=== PATIENT | male | born 1955 | race Caucasian/White ===

== ENCOUNTER 2017-01-16 23:19 | Inpatient (IN) | payer BC ==
[~2017-01-16] VITALS: Ht 188 cm; Wt 125.3 kg
[2017-01-16] MEDS: SODIUM CHLOR 0.9% 1000 ML INJ 1,000 ML IV SCH (21:33)
[~2017-01-16 23:19] MED LIST: ACETAMINOPHEN 325 MG TAB PO PRN; BISACODYL 10 MG SUPP RECTAL PRN; LACTULOSE SYRUP 20 GM/30 ML CUP PO PRN; LISI-519 PO; MAGNESIUM HYDROXIDE SUSP 30 ML CUP PO PRN; METO50TA PO; NALOXONE HCL 0.4 MG/ML AMP IV PUSH PRN; ONDANSETRON HCL 4 MG/2 ML VIAL IVP PRN; PRAD150C PO; SENNOSIDES 8.6 MG TAB PO PRN; SODIUM CHLORIDE 0.9% FLUSH 10 ML FLUSH IV FLUSH PRN
[2017-01-16 23:31] VITALS: BP 117/77; PULSE 85; RESP 16; TEMP 97.6; O2SAT 99
[2017-01-17] VITALS (9 sets, daily range): BP systolic 105–106; BP diastolic 58–63; PULSE 80–108; RESP 13–16; TEMP 97.8–98.6; O2SAT 97–100
[2017-01-17] MEDS ORDERED: CHLORHEXIDINE GLUCONATE 2 % 1 PACK (2 CLOTHS)(extra cloths) TOPICAL PRN (00:45)
--- NOTE | 2017-01-17 03:31 | HHI.HP ---
[facility] Non-Staff Admission Diagnosis Diagnoses: (1) Chest pain Diagnosis: Principal (2) Atrial fibrillation with RVR Diagnosis: Principal (3) Hypertension, essential Diagnosis: Secondary Chief Complaint: Atrial fibrillation, chest pain, and feeling tired. Travel History International Travel<30 Days: No Contact w/Intl Traveler <30 Da: No Traveled to Known Affected Are: No History of Present Illness Mr. Navarro is 61 year old, with history of atrial fibrillation (first diagnosed first in 2004) and hypertension. Mr. Navarro reported having gone to visit his son earlier in the day (01/16/17) and began feeling tired which she said started between 11 AM to 12 noon. When he returned home since of fatigue was worsening and experienced palpitations which "happens when my A. fib gets worse." He also stated that he was experiencing a "cold sweat". Mr. Navarro said that he was resting for a little bit of time and took a nap and upon awakening he continued to feel tired and was experiencing chest pain. Shortly thereafter he he ate and his condition did not lianne. He then went to the emergency room at [facility] for evaluation and management of his condition. The ED team determined he was in atrial fibrillation with RVR and a troponin level of 0.06 resulted. He was subsequently sent to [facility] for management of his condition. At time of interview , he reported that his chest pain was much improved yet he was still experiencing a sense of "pressure". He denied pain extending to his back neck or into his left arm, as well as nausea or vomiting, or shortness of breath. Per patient's , who was at the bedside during the interview, she reported that her has been having episodes of fatigue for approximately 2 weeks. She stated that today's episode was "the worst that he has had." Patient agreed with his 's observation, and stated that he would feel tired at the end of the day and need to rest. Review of Systems Constitutional: COMPLAINS OF: Diaphoretic episodes, Fatigue Endocrine: DENIES: Polyuria, Polyphagia Eyes: DENIES: Blurred vision, Double Vision Ears, nose, mouth, throat: DENIES: Hearing loss, Vertigo, Throat pain, Hoarseness Respiratory: DENIES: Cough, Shortness of breath Cardiovascular: COMPLAINS OF: Chest pain, Palpitations, DENIES: Syncope, Dyspnea on Exertion, Orthopnea Gastrointestinal: DENIES: Abdominal pain, Constipation, Diarrhea, Nausea, Vomiting Genitourinary: DENIES: Hematuria, Dysuria Musculoskeletal: DENIES: Muscle aches Neurologic: COMPLAINS OF: Headache (attributed to nitroglycerin, improved with Tylenol.) Psychiatric: DENIES: Anxiety, Confusion Except as stated in HPI: all other systems reviewed are Neg Past Family Social History Past Medical History Atrial fibrillation diagnosed in 2004. Hypertension. Past Surgical History Left knee replacement. Left inguinal hernia repair as a child. Reported Medications Reported Meds & Active Scripts Active Reported Pradaxa (Dabigatran) 150 Mg Cap 150 Mg PO BID Metoprolol Tartrate 50 Mg Tab 50 Mg PO BID Lisinopril 5 Mg Tab 5 Mg PO DAILY Allergies: Coded Allergies: No Known Allergies (Unverified , 01/16/17) Active Ordered Medications Current Medications Medications (Trade) Dose Ordered Sig/Katherine Route Start Time Stop Time Status Last Admin Sodium Chloride 1,000 ml @ 50 mls/hr Q20H IV 01/16/17 21:33 01/16/17 21:33 (NS Flush) 2 ml UNSCH PRN IV FLUSH 01/16/17 21:45 (NS Flush) 2 ml BID IV FLUSH 01/17/17 09:00 (Tylenol) 650 mg Q4H PRN PO 01/16/17 21:45 (Zofran Inj) 4 mg Q4H PRN IVP 01/16/17 21:45 (Narcan Inj) 0.4 mg UNSCH PRN IV PUSH 01/16/17 21:45 (Claire-Colace) 1 tab BID PO 01/17/17 09:00 (Milk Of Magnesia Liq) 30 ml Q12H PRN PO 01/16/17 21:45 (Senokot) 17.2 mg Q12H PRN PO 01/16/17 21:45 (Dulcolax Supp) 10 mg DAILY PRN RECTAL 01/16/17 21:45 (Lactulose Liq) 30 ml DAILY PRN PO 01/16/17 21:45 (Pradaxa) 150 mg BID PO 01/17/17 09:00 (Prinivil) 5 mg DAILY PO 01/17/17 09:00 (Lopressor) 50 mg BID PO 01/17/17 09:00 Miscellaneous Information Patient in critical care unit? Ass... Q361D .XX 01/17/17 01:00 (Chlorhexidine 2% Cloth) 3 pack DAILY@04 TOPICAL 01/17/17 04:00 01/21/17 04:01 (Chlorhexidine 2% Cloth) 3 pack UNSCH PRN TOPICAL 01/17/17 00:45 01/22/17 00:32 Family History Mother positive for diabetes, breast cancer. Paternal uncle reported to have prostate cancer. Family history of cardiovascular disease and hypertension Social History Patient denied tobacco use. Illicit/recreational drug use was denied. Alcohol use was denied. Patient is . Physical Exam Vital Signs Vital Signs Date Time Temp Pulse Resp B/P (MAP) Pulse Ox O2 Delivery O2 Flow Rate FiO2 01/17/17 02:00 88 01/17/17 00:00 99 01/16/17 23:31 97.6 85 16 117/77 (90) 99 Physical Exam GENERAL: This is a well-nourished, well-developed male, laying in bed with family at bedside, in no apparent distress. SKIN: No rashes, ecchymoses or lesions. Cool and dry. Tattoos noted on right bicep. HEAD: Atraumatic. Normocephalic. EYES: Pupils equal round and reactive. Extraocular motions intact. No scleral icterus. No injection or drainage. ENT: Nose without bleeding or purulent drainage. Airway patent. NECK: Trachea midline. No lymphadenopathy. Supple, nontender, no meningeal signs. CARDIOVASCULAR: Irregular rate and irregular rhythm without murmurs, gallops, or rubs. RESPIRATORY: Clear to auscultation. Breath sounds equal bilaterally. No wheezes , rales, or rhonchi. GASTROINTESTINAL: Abdomen soft, non-tender, nondistended. No hepato- splenomegaly or guarding. MUSCULOSKELETAL: Extremities without clubbing, cyanosis, or edema. NEUROLOGICAL: Awake and alert. Cranial nerves II through XII intact. Motor and sensory grossly within normal limits. Five out of 5 muscle strength in all muscle groups. Speech was clear and fluent. Laboratory Laboratory Tests Test 01/16/17 23:30 01/17/17 00:49 Nasal Screen MRSA (PCR) MRSA NOT DETECTED Troponin I 0.06 Caprini VTE Risk Assessment Caprini VTE Risk Assessment: Mod/High Risk (score >= 2) Caprini Risk Assessment Model Point Value = 1 Point Value = 2 Point Value = 3 Point Value = 5 Age 41-60 Minor surgery BMI > 25 kg/m2 Swollen legs Varicose veins or History of unexplained or recurrent spontaneous Oral contraceptives or hormone replacement Sepsis (< 1 month) Serious lung disease, including pneumonia (< 1 month) Abnormal pulmonary function Acute myocardial infarction Congestive heart failure (< 1 month) History of inflammatory bowel disease Medical patient at bed rest Age 61-74 Arthroscopic surgery Major open surgery (> 45 min) Laparoscopic surgery (> 45 min) Malignancy Confined to bed (> 72 hours) Immobilizing plaster cast Central venous access Age >= 75 History of VTE Family history of VTE Factor V Leiden Prothrombin [id number] Lupus anticoagulant Anticardiolipin antibodies Elevated serum homocysteine Heparin-induced thrombocytopenia Other congenital or acquired thrombophilia Stroke (< 1 month) Elective arthroplasty Hip, pelvis, or leg fracture Acute spinal cord injury (< 1 month) Prophylaxis Regimen Total Risk Factor Score Risk Level Prophylaxis Regimen 0-1 Low Early ambulation 2 Moderate Order ONE of the following: *Sequential Compression Device (SCD) *Heparin 5000 units SQ BID 3-4 Higher Order ONE of the following medications: *Heparin 5000 units SQ TID *Enoxaparin/Lovenox 40 mg SQ daily (WT < 150 kg, CrCl > 30 mL/min) *Enoxaparin/Lovenox 30 mg SQ daily (WT < 150 kg, CrCl > 10-29 mL/min) *Enoxaparin/Lovenox 30 mg SQ BID (WT < 150 kg, CrCl > 30 mL/min) AND/OR *Sequential Compression Device (SCD) 5 or more Highest Order ONE of the following medications: *Heparin 5000 units SQ TID (Preferred with Epidurals) *Enoxaparin/Lovenox 40 mg SQ daily (WT < 150 kg, CrCl > 30 mL/min) *Enoxaparin/Lovenox 30 mg SQ daily (WT < 150 kg, CrCl > 10-29 mL/min) *Enoxaparin/Lovenox 30 mg SQ BID (WT < 150 kg, CrCl > 30 mL/min) AND *Sequential Compression Device (SCD) Assessment and Plan Problem List: (1) Hypertension, essential ICD Code: I10 - Essential (primary) hypertension (2) Chest pain ICD Code: R07.9 - Chest pain, unspecified (3) Atrial fibrillation with RVR ICD Code: I48.91 - Unspecified atrial fibrillation Status: Acute Assessment and Plan Mr. Navarro is 61 year old, with history of atrial fibrillation (first diagnosed first in 2004) and hypertension. Mr. aNvarro reported having gone to visit his son earlier in the day (01/16/17) and began feeling tired which she said started between 11 AM to 12 noon. When he returned home since of fatigue was worsening and experienced palpitations which "happens when my A. fib gets worse." He also stated that he was experiencing a "cold sweat". Mr. Navarro said that he was resting for a little bit of time and took a nap and upon awakening he continued to feel tired and was experiencing chest pain. Shortly thereafter he he ate and his condition did not lianne. He then went to the emergency room at [facility] for evaluation and management of his condition. The ED team determined he was in atrial fibrillation with RVR and a troponin level of 0.06 resulted. Atrial fibrillation with RVR Hypertension -Admit to [facility] -Consult cardiology -Serial troponins -Continue home metoprolol 50 mg twice a day -Continue lisinopril 5 mg daily -Continue Pradaxa 150 mg twice a day Diet -Healthy heart DVT prophylaxis -Pradaxa 150 mg twice a day Code Status Full code Discussed Condition With Patient, and adult son (at bedside), and Dr. Onofre Physician Certification 2 Midnight Certification Type: Admission for Inpatient Services Order for Inpatient Services The services are ordered in accordance with Medicare regulations or non- Medicare payer requirements, as applicable. In the case of services not specified as inpatient-only, they are appropriately provided as inpatient services in accordance with the 2-midnight benchmark. Estimated LOS (days): 2 Two days is the estimated time the patient will need to remain in the hospital, assuming treatment plan goals are met and no additional complications. Post-Hospital Plan: Home Problem Qualifiers (1) Chest pain: Qualified Codes: R07.9 - Chest pain, unspecified Alli Baptiste Jr. Jan 17, 2017 03:31
[2017-01-17] MEDS: CHLORHEXIDINE GLUCONATE 2 % 1 PACK (2 CLOTHS)(taper/protocol) TOPICAL SCH (04:00)
[2017-01-17] MEDS: DOCUSATE SODIUM 50 MG/SENNA 8.6 MG TAB PO SCH ×2 (07:47→20:11)
[2017-01-17] MEDS: METOPROLOL TARTRATE 50 MG TAB PO SCH ×2 (07:47→20:11)
[2017-01-17] MEDS: LISINOPRIL 5 MG TAB PO SCH (07:47)
[2017-01-17] MEDS ORDERED: NITROGLYCERIN-DEXTROSE 5% 250 ML for hypertension IV PRN (08:45)
[2017-01-17] MEDS ORDERED: DABIGATRAN ETEXILATE 150 MG CAP PO SCH (09:00)
[2017-01-17] MEDS ORDERED: ASPIRIN 81 MG CHEW TAB CHEW ONE (09:45)
[2017-01-17] MEDS: SODIUM CHLORIDE 0.9% FLUSH 10 ML FLUSH IV FLUSH SCH ×2 (12:37→20:12)
[2017-01-17 13:41] LABS: ALT (GPT) 31 U/L (12-78); ANION GAP 8 MEQ/L (5-15); AST (GOT) 18 U/L (15-37); BICARBONATE 23.2 MEQ/L (21.0-32.0); BLOOD UREA NITROGEN 17 MG/DL (7-18); CHLORIDE 111 MEQ/L (98-107); GLOMERULAR FILTRATION RATE 76 ML/MIN (>89); POTASSIUM 3.7 MEQ/L (3.5-5.1); SODIUM (NA) 142 MEQ/L (136-145)
[2017-01-17 13:43] LABS: ALKALINE PHOSPHATASE 56 U/L (45-117); TOTAL BILIRUBIN ADULT 0.4 MG/DL (0.2-1.0)
--- NOTE | 2017-01-17 14:23 | MB ---
cc: OLIVERIO HALEY M.D. DATE OF CONSULTATION: 01/17/2017 HISTORY OF PRESENT ILLNESS Poli is a very pleasant 61-year-old gentleman followed by Dr. Avila in [place]. According to the daughter he went to the ER yesterday. He has history of atrial fibrillation, he is on Pradaxa. He developed chest pain for the first time in his life yesterday, which was described as pressure and severe. The pain continued until this morning when he was put on a nitro drip and received narcotics. Currently he is pain free, resting comfortably, lucid, in no acute distress. Otherwise, denies any fevers, chills, cough, GI, bleeding, PND, orthopnea, syncope or dizziness. PAST MEDICAL HISTORY His past medical history is per history of present illness. He has a history of: 1. Hypertension. 2. History of knee replacement. 3. Inguinal hernia repair as a child. MEDICATIONS PRIOR TO ADMISSION 1. Pradaxa 150 b.i.d. 2. Metoprolol 50 b.i.d. 3. Lisinopril 5 mg daily. ALLERGIES None. SOCIAL HISTORY Denies tobacco use. Denies alcohol use. MEDICATIONS IN THE HOSPITAL 1. Aspirin 81 mg daily. 2. Lisinopril 5 mg daily. 3. Metoprolol 50 b.i.d. 4. IV nitroglycerin. PHYSICAL EXAMINATION VITAL SIGNS: Blood pressure 106/63, pulse ranging between 84 and 103, temperature 97.8, respiratory rate 13. GENERAL: He is alert and oriented x 3, in no acute distress. NECK: Supple. No JVD or bruits. CARDIOVASCULAR: S1, S2, no murmurs, rubs or gallops. LUNGS: Clear to auscultation bilaterally. ABDOMEN: Soft, nontender, nondistended with positive bowel sounds. EXTREMITIES: No lower extremity edema. EKG Shows atrial fibrillation at a rate of 128 beats per minute, nonspecific ST-T wave changes, consider anterolateral ischemia. IMAGING STUDIES Chest x-ray shows no acute disease. LABORATORY DATA White count 6.6, hemoglobin 13.5, hematocrit 39.6, platelet count 255, sodium 142, potassium 3.7, chloride 111, bicarb 23.2, BUN 17, creatinine 1.0. Troponin is 0.06, albumin 3.1. INR 1.0. He has had two more troponins today which were 0.06 and 0.06. DIAGNOSIS 1. Non-STEMI. 2. Atrial fibrillation with rapid ventricular response. DISCUSSION At this point in time the patient is pain free on IV nitro. Recommend hold Pradaxa, continue aspirin, continue metoprolol 50 b.i.d., use Cardizem drip p.r.n. for rate control. Plan is for left heart catheterization tomorrow. I have discussed this with the patient, the nurse and the patient's family. MD MANI Chicas/TLL /1:56 PM /2:05 PM
[2017-01-17] MEDS: SODIUM CHLOR 0.9% 1000 ML INJ 1,000 ML IV SCH (17:33)
[2017-01-18] VITALS (30 sets, daily range): BP systolic 83–139; BP diastolic 56–79; PULSE 89–128; RESP 10–24; TEMP 97.9–98.8; O2SAT 95–100
[2017-01-18 04:32] LABS: HEMATOCRIT 38.3 % (39.0-51.0); MEAN CELL VOLUME 90.9 FL (80.0-100.0); MEAN CORPUSCULAR HEMOGLOBIN 30.7 PG (27.0-34.0); MEAN CORPUSCULAR HGB CONC 33.8 % (32.0-36.0); PLATELET COUNT 201 TH/MM3 (150-450); RED BLOOD COUNT 4.22 MIL/MM3 (4.50-5.90); RED CELL DISTRIBUTION WIDTH 13.2 % (11.6-17.2); REVIEW FLAG FINAL; WHITE BLOOD COUNT 6.4 TH/MM3 (4.0-11.0)
[2017-01-18 04:57] LABS: MAGNESIUM 1.8 MG/DL (1.5-2.5); POTASSIUM 3.9 MEQ/L (3.5-5.1)
[2017-01-18] MEDS: CHLORHEXIDINE GLUCONATE 2 % 1 PACK (2 CLOTHS)(taper/protocol) TOPICAL SCH (07:00)
[2017-01-18] MEDS: LISINOPRIL 5 MG TAB PO SCH (08:36)
[2017-01-18] MEDS: METOPROLOL TARTRATE 50 MG TAB PO SCH ×2 (08:36→20:28)
[2017-01-18] MEDS: SODIUM CHLORIDE 0.9% FLUSH 10 ML FLUSH IV FLUSH SCH ×2 (08:37→20:29)
[2017-01-18] MEDS: DOCUSATE SODIUM 50 MG/SENNA 8.6 MG TAB PO SCH ×2 (08:37→20:28)
[2017-01-18] MEDS ORDERED: ASPIRIN 81 MG CHEW TAB CHEW SCH (09:00)
[2017-01-18] MEDS ORDERED: IOHEXOL 350 MG/ML 100 ML BTL (for Cath Lab) OTHER ONE (09:51)
[2017-01-18] MEDS ORDERED: NITROGLYCERIN-D5W 50 MG/250 ML 0 ML ONE (12:36)
[2017-01-18] MEDS ORDERED: HEPARIN SODIUM - IV 10,000 UNITS/10 ML VIAL ONE (12:48)
[2017-01-18] MEDS ORDERED: TIROFIBAN INFUSION INJ 250 ML IV ONE (12:52)
[2017-01-18] MEDS ORDERED: CLOPIDOGREL 300 MG TAB ONE (12:59)
[2017-01-18] MEDS: TIROFIBAN INFUSION INJ 250 ML IV SCH ×2 (13:14→21:26)
[2017-01-18] MEDS ORDERED: MISC INFORMATION XX ONE (13:15)
[2017-01-18] MEDS ORDERED: SODIUM CHLORIDE 0.9% FLUSH 10 ML FLUSH IV FLUSH PRN (13:15)
[2017-01-18] MEDS ORDERED: BACITRACIN OINT 0.9 GM PKT TOP ONE (13:15)
--- NOTE | 2017-01-18 13:22 | CATHPROC ---
[facility] HIS Report Study Information Study Number Admission Scheduled Start Study Start [id number] Jan 16 2017 11:20PM 01/18/2017 Jan 18 2017 12:23PM [place] [facility] Cardiac Catheterization Admit Source Facility Department Other [facility] - Commercial Teller Physician and Clinical Staff Initial Cuate Kraus Mortgage Protection Sales Herbert Hogue Mortgage Protection Sales Maru Olson,ALIA Recorder Kwame Ramirez RCIS(BS) Scrub HostDavion bailon,RT(R) Procedures Performed Procedure Location (Site) Vessel Name Coronary Angiograms LCA Left Coronary Coronary Angiograms RCA Right Coronary L Heart Cath LV Gram-hand inj. LV LV Ventricle Stent LAD Prox Left Coronary Wire insertion Fem Art (right) Femoral Art Equipment Time Brush Material Preparer Description Size Mfg Part Number Used/Scraped [id number] 12:50 [employer] WIRE, ASAHI PROWATER 180CM 180CM Used *[id number] TRANSDUCER, TRUWAVE [id number] 12:39 ZAVALA SABA * Used W/STOCKCOCK *[id number] [id number] *[id number] *[id number] *[id number] 12:39 MEDLINE INDUSTRIES PACK, CCL CUSTOM * Used *[id number] 12:39 Jumo PACER PEN, SKIN DUAL W/ RULER * Used *[id number] 12:55 MEDTRONIC STENT, 3.0 9 INTEGRITY 3.0 9 Used *[id number] 12:55 Soocial MEDICAL 30 BALDEV INDEFLATOR Used *[id number] 12:51 Soocial MEDICAL SHEATH, FR6.5 PRELUDE 11CM FR 6.5 038ACT Used *[id number] 12:39 [employer]o Entertainment WIRE, 3MMJ .035 180CM 180CM Used *[id number] 12:39 NAMIC MANIFOLD, 4 PORT * Used *[id number] 12:39 NYCOMED OMNIPAQUE, 350 MG, 150ML 150ML [id number] Used [id number] 12:39 MORE MEDICAL BLANKET,WARM AIR CCL * Used *[id number] 12:39 TERUMO MEDICAL SHEATH, FR4 TERUMO (10CM) FR 4 Used *[id number] Equipment Model, Serial, Lot Number and Expiration Data Description Model Number Serial Number Lot Number Expiration Date STENT, 3.0 9 INTEGRITY [id number] 11-09-2017 History: Allergies Allergy Reaction No Known Allergies broccoli HIVES cauliflower HIVES BRUSSEL SPROUTS HIVES History: Risk Factors Family History of Hypertension Dyslipidemia Previous OH Previous Heart Failure Premature CAD Yes No Yes No No Prior Valve Prior PCI Prior CABG Surgery No No No Cerebrovascular Peripheral Artery Chronic Lung On Dialysis Diabetes Disease Disease Disease No No No No No History: Stress Tests Stress or Imaging Studies Performed No History: Other Current Smoker Method Quit Packs a Day Years Used Pack Years No Cigarettes 36 Years Ago 1 4 4 Labs Hgb (g/dl) Hct (%) WBC (l/cumm) Platelets (thousands) 11.60-17.00 35.00-51.00 4.00-11.00 150.00-450.00 12.9 38.3 6.4 201 Glucose (mg/dl) BUN (mg/dl) Creatinine (mg/dl) BUN:Creatinine (1:x) 74.00-106.00 7.00-18.00 0.50-1.30 10.00-20.00 90 15 0.9 16.7 Na (meq/l) K (meq/l) 136.00-145.00 3.50-5.10 142 3.9 Troponin I (ng/ml) CPK (u/l) CPK-MB (ng/ML) 0.02-0.05 26.00-308.00 0.50-3.60 0.07 101 Not Drawn Medication Medication Total Dose (Bolus/Oral) Medication Total Dosage/Unit 1% XYLOCAINE 20 mL AGGRASTAT BOLUS 62 mL HEPARIN 8700 units PLAVIX 600 mg Medications (Bolus/Oral) Medication Time Given Dosage/Unit Administered By Reason 01/18/2017 12:42:03 1% XYLOCAINE 20 mL Cuate Montoya PM 20 mL 1% XYLOCAINE given in lab by Cuate Montoya in Right Groin via Subcutaneous. Ordered by Cuate Young. 01/18/2017 12:48:00 HEPARIN 8700 units Herbert Hogue PM 8700 units HEPARIN given in lab by Herbert Hogue in Left Hand via Peripheral IV. Ordered by Cuate Brambila. 01/18/2017 12:59:00 AGGRASTAT BOLUS 62 mL Herbert Hogue PM 62 mL AGGRASTAT BOLUS given in lab by Herbert Hogue in Left Hand via Peripheral IV. Ordered by Cuate Preciado. PLAVIX 01/18/2017 1:08:56 PM 600 mg Herbert Hogue 600 mg PLAVIX given in lab by Herbert Hogue via Oral. Ordered by Cuate Montoya. Medication (Drip) Medication Time Given Dosage/Unit Concentration/Unit Diluent (ml) Solution AGGRASTAT DRIP 01/18/2017 1:03:00 PM 22.5 mL/hr 12.5 mL 250 NaCl .9 22.5 mL/hr AGGRASTAT DRIP given in lab by Herbert Hogue in Right Hand via Peripheral IV. Pump/Drip Flow = 450 ml/hr using NaCl .9 with a concentration of 12.5 mL in 250 ml. Ordered by Cuate Montoya. Initial Case Assessment Cardiovascular HR Rhythm NIBP Chest Pain 92 AFIB 132/88 0 Edema Present Skin color Skin None Normal Warm Dry Circulatory - Right Pulses Dorsalis Pedis Femoral 1 2 Scale (0,1,2,3,4,d) Circulatory - Left Pulses Dorsalis Pedis Femoral 1 2 Scale (0,1,2,3,4,d) Circulatory - Lower Extremities Color Lower Right Color Lower Left Normal Normal Neurological State Oriented to time-place- Alert Moves all extremities person Respiration - General Respiration Rate SpO2 (%) (B/min) 14 97 Final Case Assessment Cardiovascular HR Rhythm NIBP Chest Pain 92 AFIB 131/65 0 Edema Present Skin color Skin None Normal Warm Dry Circulatory - Right Pulses Dorsalis Pedis Femoral 1 2 Scale (0,1,2,3,4,d) Circulatory - Left Pulses Dorsalis Pedis Femoral 1 2 Scale (0,1,2,3,4,d) Circulatory - Lower Extremities Color Lower Right Color Lower Left Normal Normal Neurological State Oriented to time-place- Alert Moves all extremities person Respiration - General Respiration Rate SpO2 (%) (B/min) 14 97 Chronological Log Time Study Chronological Log 12:23:31 Patient arrived via Bed. 12:23:32 Patient Name, D.O.B, / Armband Verified By R.N. 12:23:32 Consent signed by the physician and the patient and verified by the Commercial Teller staff. 12:23:33 Pre-op and post- op instructions given; patient acknowledges understanding of instructions. 12:23:34 Verbal Stimulation=2 Physical Stimulation=2 Airway=2 Respiration=2 TOTAL=8. (0=absent, 1=li mited, 2=present) 12:23:38 Patient has been NPO for More than 6Hrs. 12:23:39 Skin Breakdown- 12:23:44 Patient Warmer Placed on the Table. Vitals capture started with the following parameters, Patient=Adult, Interval=5 min, Initial Pr ejkvxz=406 mmHg, 12:27:36 Deflation Rate=5 mmHg, Cuff placed on Left Arm 12:28:48 HR=87 bpm, ZUSR=057/81 mmhg, SpO2=99.0 %, Resp=9 B/min, Pain=0, Arnel=10, Salazar=2 12:33:10 XP=996 bpm, SQXF=181/88 mmhg, SpO2=98.0 %, Resp=21 B/min, Pain=0, Arnel=10, Salazar=2 Assessment: Initial Case, HR=92 BPM, Rhythm=AFIB, KFRR=083/88 mmhg, Chest Pain=0, Edema=None, Color=Normal, Skin = Warm, Dry Right Pulses: Liban Ped=1, Femoral=2 Left Pulses: Liban Ped=1, Femoral=2 12:33:55 Lower Right Extremities: Color=Normal Lower Left Extremities: Color=Normal Neurological: State=Alert, Ox3, CARRILLO Respiration: Resp=14 B/min, SpO2=97 % 12:36:21 Bilateral groins prepped with 2% chlorhexidine, and draped after a 3 minute waiting time. 12:38:13 HR=89 bpm, DISZ=467/88 mmhg, SpO2=98.0 %, Resp=14 B/min, Pain=0, Arnel=10, Salazar=2 12:38:30 Reference ECG taken 12:40:24 MD arrived. 12:41:06 Pressure channel 1 zeroed. Time Out. Correct patient, correct procedure, correct physician, power injector not loaded with contrast with surgical 12:42:00 team present. Time Out Concurred by MD and individual staff in procedure. 12:42:01 Case Start 20 mL 1% XYLOCAINE given in lab by Cuate Montoya in Right Groin via Subcutaneous. Ordered by Lindsay, 12:42:03 Cuate. 12:43:17 HR=77 bpm, MGAT=575/85 mmhg, SpO2=99.0 %, Resp=11 B/min, Pain=0, Arnel=10, Salazar=2 12:43:36 Access site was Right Femoral Artery. 12:43:58 A SHEATH, FR4 TERUMO (10CM) FR 4 was advanced into the Fem Art (right) using the Percutaneo us technique. A JR 4.0 INFINITI CATHETER FR 4 was advanced over a wire. OMNIPAQUE, 350 MG, 150ML 150ML was us ed for 12:44:07 injections. Recorded Pressure: LV, HB=430, Condition=Condition 1 12:44:43 (Left Ventricle) LV 107/19/21 12:44:53 The LV was manually injected with 8 cc's and visualized. OMNIPAQUE, 350 MG, 150ML 150ML use d. Recorded Pressure: LV, Ao, YH=355, Condition=Condition 1 12:45:03 (Left Ventricle) LV 114/32/30, (Aorta) Ao 131/60/94 Recorded Pressure: Ao, HR=98, Condition=Condition 1 12:45:51 (Aorta) Ao 118/80/98 12:46:00 The RCA was injected and visualized at various angles. OMNIPAQUE, 350 MG, 150ML 150ML used . 12:46:29 Catheter was removed A JL 4.0 INFINITI CATHETER FR 4 was advanced over a wire. OMNIPAQUE, 350 MG, 150ML 150ML was us ed for 12:46:31 injections. 12:47:13 The LCA was injected and visualized at various angles. OMNIPAQUE, 350 MG, 150ML 150ML used . 12:48:00 8700 units HEPARIN given in lab by Herbert Hogue in Left Hand via Peripheral IV. Ordered by Cuate Montoya. 12:48:09 LD=244 bpm, EQGC=587/85 mmhg, SpO2=98.0 %, Resp=11 B/min, Pain=0, Arnel=10, Salazar=2 12:50:36 Catheter was removed A SHEATH, FR6.5 PRELUDE 11CM FR 6.5 was exchanged in the Fem Art (right). This was necessary in order to 12:50:39 accomodate a larger catheter. Recorded Pressure: Ao, YX=897, Condition=Condition 1 12:52:00 (Aorta) Ao 129/86/104 A XB 3.5 GUIDE CATHETER FR 6 was advanced over a wire. OMNIPAQUE, 350 MG, 150ML 150ML was used for 12:52:36 injections. 12:53:24 A WIRE, ASAHI PROWATER 180CM 180CM was inserted via Fem Art (right). 12:53:43 XH=634 bpm, BJRE=548/84 mmhg, SpO2=99.0 %, Resp=12 B/min, Pain=0, Arnel=10, Salazar=2 12:53:54 Interventional wire has crossed the lesion An STENT, 3.0 9 INTEGRITY 3.0 9 Bare Metal Stent was inserted through a XB 3.5 GUIDE CATHETER F R 6 over a 12:54:17 WIRE, ASAHI PROWATER 180CM 180CM. A STENT, 3.0 9 INTEGRITY 3.0 9 was deployed using a 30 BALDEV INDEFLATOR at 11 atmospheres for 20 seconds in the 12:54:51 LAD Prox. 12:55:17 Delivery device removed 12:56:51 Wire removed 12:56:53 Catheter was removed 12:57:00 Case End 12:57:02 Activated Clotting Time Drawn 12:58:14 WA=931 bpm, EDAZ=332/86 mmhg, SpO2=99.0 %, Resp=26 B/min, Pain=0, Arnel=10, Salazar=2 12:59:00 62 mL AGGRASTAT BOLUS given in lab by Herbert Hogue in Left Hand via Peripheral IV. Orde red by Cuate Montoya. 22.5 mL/hr AGGRASTAT DRIP given in lab by Herbert Hogue in Right Hand via Peripheral IV. Pum p/Drip Flow = 450 13:03:00 ml/hr using NaCl .9 with a concentration of 12.5 mL in 250 ml. Ordered by Cuate Montoya. 13:03:17 HR=93 bpm, KDTH=984/65 mmhg, SpO2=99.0 %, Resp=8 B/min, Pain=0, Arnel=10, Salazar=2 13:03:21 ACT (Normal Range 90-180) = 287 Assessment: Final Case, HR=92 BPM, Rhythm=AFIB, ZSQN=238/65 mmhg, Chest Pain=0, Edema=None, Color=Normal, Skin = Warm, Dry Right Pulses: Liban Ped=1, Femoral=2 Left Pulses: Liban Ped=1, Femoral=2 13:04:27 Lower Right Extremities: Color=Normal Lower Left Extremities: Color=Normal Neurological: State=Alert, Ox3, CARRILLO Respiration: Resp=14 B/min, SpO2=97 % 13:04:59 In the Fem Art (right) the SHEATH, FR6.5 PRELUDE 11CM FR 6.[address] by Cuate Brambila. 13:05:06 Sterile dressing applied to site 13:05:08 No case complications noted. 13:05:08 Cine recording checked. 13:05:17 Vitals capture stopped. 13:05:19 Implantable Device card placed in patient's chart. 13:05:25 Bedside Report will be given. 13:05:31 Contrast Scanned 13:05:33 A Left Heart Cath was performed. 13:05:34 [facility] 13[facility]08[facility] 600 mg PLAVIX given in lab by Herbert Hogue via Oral. Ordered by Cuate Montoya. End Study - Contrast Media Used In Study Contrast Total Opened (mL) Total Used (mL) Total Wasted (mL) Omnipaque 100 100 0 End Study - Maximum Contrast Load Max Contrast Load (mL) 694.4 End Study - Radiation Exposure Fluoro Time (minutes) 3.4 End Study - Patient Disposition Complications Transferred To Interventional Outcome No Critical Care Bed successful
[2017-01-18] MEDS: SODIUM CHLOR 0.9% 1000 ML INJ 1,000 ML IV SCH ×2 (13:33→20:36)
--- NOTE | 2017-01-18 13:34 | MA ---
cc: CUATE HALEY M.D. DATE 01/18/2017 PROCEDURE PERFORMED: Left heart catheterization, left ventriculography, coronary angiography, direct PCI with bare metal stent of the proximal mid-LAD. INDICATIONS: Non-STEMI coronary artery disease. A-fib, rapid ventricular response. PROCEDURE: The patient was brought to the Cardiac Catheterization Laboratory, prepped and draped in the usual sterile fashion. 10 cc of 1% lidocaine was used to locally anesthetize the right common femoral artery. A 4-Bangladeshi sheath was successfully placed in the right common femoral artery. 4-Bangladeshi JR4 and JL4 catheters were used to perform left and right coronary angiography and left ventriculography. FINDINGS: LV pressures: 120/10-12. Ejection fraction: 60%. CORONARY ANGIOGRAPHY: The right coronary artery is dominant. It has diffuse proximal disease up to 30-40% angiographically. The proximal right mid-segment has a 60 to perhaps 70% stenosis. The left main coronary artery has no significant disease angiographically. The left circumflex vessel has no significant disease angiographically. The first obtuse marginal vessel has 50-60% proximal disease; it is a medium-sized vessel. The remainder of the AV groove and left circumflex vessel has no significant disease. It supplies two small posterolateral arteries with no significant disease angiographically. The LAD is transapical, has a 90% proximal mid-stenosis and a bifurcation with a small diagonal vessel. There is mild disease in the mid-segment up to 30% angiographically. INTERVENTION: A 6-Bangladeshi sheath was exchanged for a 4-Bangladeshi sheath. 70 units/kg heparin was given, ACT 287. A 6-Bangladeshi XB-3.5 guide with 0.014 [place] guidewire and a 3.0/9 Integrity stent were used to directly stent the proximal mid-LAD with one inflation of 11 atmospheres for 20 seconds. Balloon inflation did reproduce the patient's chest pain that he had which brought him into the hospital. This was completely relieved within 2 minutes of deflating the balloon. The stenosis went from 90% to 0% with ROMINA-3 flow. There was ROMINA-3 flow into the diagonal which was jailed with mild stenosis of the ostium of the diagonal to about 20-30%. CONCLUSIONS: 1. Non-STEMI culprit 90% proximal mid-LAD disease as detailed above. 2. Otherwise mild to moderate three vessel coronary artery disease in a right-dominant system, as detailed above. 3. Normal LV systolic function, ejection fraction of 60%. RECOMMENDATIONS: 1. Recommend aspirin 81 mg daily, Plavix 600 mg p.o. load and then 75 mg per day for 12-15 months. Resume Pradaxa 150 mg b.i.d. tomorrow. 2. I explained to the patient that it is very important that he take all three anticoagulants. 3. 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 He understands. 4. We will also check fasting lipids and treat to NCP guidelines. Cuate Haley MD AWC/SSB /1:02 PM /1:10 PM
[2017-01-18] MEDS ORDERED: CLOPIDOGREL 300 MG TAB PO ONE (14:00)
--- NOTE | 2017-01-18 14:35 | EKG ---
Date Performed: 01/18/2017 Time Performed: 13:41:41 PTAGE: 61 years EKG: ATRIAL FIBRILLATION WITH RAPID VENTRICULAR RESPONSE WITH ABERRANT CONDUCTION OR VENTRICULAR PREMATURE COMPLEXES NONSPECIFIC T-WAVE ABNORMALITY ABNORMAL ECG No significant change from prior chris ctrocardiogram. DOCTOR: Rasheed Grant Interpretating Date/Time 01/18/2017 14:33:48
--- NOTE | 2017-01-18 15:07 | HHI.PR ---
Subjective Remarks Follow-up non-ST elevation [place]/PAF 01/18/17-patient seen and examined around 10 AM had no chest pain however reported some occasional fluttering nothing by mouth and plan for left heart catheterization Objective Vitals Vital Signs Date Time Temp Pulse Resp B/P (MAP) Pulse Ox O2 Delivery O2 Flow Rate FiO2 01/18/17 10:00 107 01/18/17 08:35 98 Nasal Cannula 1.00 01/18/17 08:00 98.7 128 19 139/64 (89) 98 01/18/17 08:00 128 01/18/17 06:00 110 01/18/17 04:00 98.4 92 11 94/56 (69) 99 01/18/17 04:00 92 01/18/17 02:00 116 01/18/17 00:00 106 01/18/17 00:00 97.9 106 24 87/59 (68) 95 01/17/17 22:00 90 01/17/17 20:33 98 Nasal Cannula 2.00 01/17/17 20:00 98.6 108 16 105/58 (74) 99 01/17/17 20:00 108 I/O 01/17/17 01/17/17 01/17/17 01/18/17 01/18/17 01/18/17 07:00 15:00 23:00 07:00 15:00 23:00 Intake Total 1813 ml 731 ml Output Total 850 ml 750 ml Balance 963 ml -19 ml Intake Oral 800 ml 120 ml IV Total 1013 ml 611 ml Output Urine Total 850 ml 750 ml # Voids 2 # Bowel Movements 1 Result Diagram: 01/18/17 0414 01/18/17 0414 Objective Remarks GENERAL: NAD SKIN: Warm and dry. HEAD: Normocephalic. EYES: No scleral icterus. No injection or drainage. NECK: Supple, trachea midline. No JVD or lymphadenopathy. CARDIOVASCULAR: Irregular Regular rate and rhythm without murmurs, gallops, or rubs. RESPIRATORY: Breath sounds equal bilaterally. No accessory muscle use. GASTROINTESTINAL: Abdomen soft, non-tender, nondistended. MUSCULOSKELETAL: No cyanosis, or edema. BACK: Nontender without obvious deformity. No CVA tenderness. A/P Problem List: (1) Non-ST elevation [place] (NSTEMI) ICD Code: I21.4 - Non-ST elevation (NSTEMI) myocardial infarction (2) Atrial fibrillation with RVR ICD Code: I48.91 - Unspecified atrial fibrillation Status: Acute (3) Hypertension, essential ICD Code: I10 - Essential (primary) hypertension (4) Chest pain ICD Code: R07.9 - Chest pain, unspecified Assessment and Plan 61 year-old man with Non-ST elevation [place] Plan for left heart catheterization per cardiology today 01/18/17 Continue with aspirin/beta madison/Lipitor 2-D echo pending Paroxysmal atrial fibrillation Plan for left heart catheterization Continue beta madison Resume oral anticoagulation in a.m. 01/19/17 Hypertension Continue beta madison/BLAKE inhibitor Hyperlipidemia On Statin Check lipid profile DVT prophylaxis:B-SCD; OAC on hold Problem Qualifiers (1) Chest pain: Qualified Codes: R07.9 - Chest pain, unspecified Ariel Alvarez MD Jan 18, 2017 15:07
[2017-01-18] MEDS ORDERED: NALOXONE HCL 0.4 MG/ML AMP IV PUSH PRN (17:00)
[2017-01-18] MEDS ORDERED: ACETAMINOPHEN/HYDROcodone 325 MG/7.5 MG TAB PO PRN (17:00)
[2017-01-18] MEDS ORDERED: ACETAMINOPHEN/HYDROcodone 325 MG/5 MG TAB PO PRN (17:00)
[2017-01-18] MEDS ORDERED: ATORVASTATIN 10 MG TAB PO SCH (21:00)
[2017-01-19] VITALS (7 sets, daily range): BP systolic 94–120; BP diastolic 50–74; PULSE 109–158; RESP 14–35; TEMP 98.1–98.8; O2SAT 95–98
[2017-01-19] MEDS: CHLORHEXIDINE GLUCONATE 2 % 1 PACK (2 CLOTHS)(taper/protocol) TOPICAL SCH (04:00)
[2017-01-19 04:48] LABS: AUTOMATED NEUTROPHIL # 3.9 TH/MM3 (1.8-7.7); BASOPHIL % 0.3 % (0.0-2.0); EOSINOPHIL # 0.1 TH/MM3 (0-0.4); EOSINOPHIL % 1.1 % (0.0-4.0); HEMATOCRIT 38.9 % (39.0-51.0); HEMO FLAGS DIFF FINAL; LYMPH % 35.1 % (9.0-44.0); LYMPHOCYTE # 2.5 TH/MM3 (1.0-4.8); MEAN CELL VOLUME 90.7 FL (80.0-100.0); MEAN CORPUSCULAR HEMOGLOBIN 31.4 PG (27.0-34.0); MEAN CORPUSCULAR HGB CONC 34.6 % (32.0-36.0); MONO % 7.8 % (0.0-8.0); NEUT % 55.7 % (16.0-70.0); PLATELET COUNT 214 TH/MM3 (150-450); RED BLOOD COUNT 4.29 MIL/MM3 (4.50-5.90)
[2017-01-19 05:11] LABS: BICARBONATE 25.3 MEQ/L (21.0-32.0); POTASSIUM 3.8 MEQ/L (3.5-5.1)
[2017-01-19 05:13] LABS: HDL CHOLESTEROL 26.1 MG/DL (40.0-60.0)
[2017-01-19] MEDS ORDERED: ASPIRIN 81 MG CHEW TAB PO SCH (09:00)
[2017-01-19] MEDS: SODIUM CHLORIDE 0.9% FLUSH 10 ML FLUSH IV FLUSH SCH (09:00)
[2017-01-19] MEDS: DOCUSATE SODIUM 50 MG/SENNA 8.6 MG TAB PO SCH (09:00)
[2017-01-19] MEDS ORDERED: CLOPIDOGREL 75 MG TAB PO SCH (09:00)
[2017-01-19] MEDS: LISINOPRIL 5 MG TAB PO SCH (09:08)
[2017-01-19] MEDS: METOPROLOL TARTRATE 50 MG TAB PO SCH (09:08)
--- NOTE | 2017-01-19 09:20 | EKG ---
Date Performed: 01/19/2017 Time Performed: 05:56:16 PTAGE: 61 years EKG: Atrial fibrillation with rapid ventricular response with PVC(s) or aberrant ventricular con duction Inferior T wave changes are nonspecific Abnormal ECG No significant change from prior electro cardiogram. PREVIOUS TRACING : 01/18/2017 13.41 DOCTOR: Rasheed Grant Interpretating Date/Time 01/19/2017 09:18:29
--- NOTE | 2017-01-19 09:49 | HHI.PR ---
Subjective Remarks Follow-up non-ST elevation [place]/PAF 01/18/17-patient seen and examined around 10 AM had no chest pain however reported some occasional fluttering nothing by mouth and plan for left heart catheterization 01/19/17-patient seen and examined, patient had left heart catheterization performed yesterday;patient reports some occasional fluttering but no chest pain. Objective Vitals Vital Signs Date Time Temp Pulse Resp B/P (MAP) Pulse Ox O2 Delivery O2 Flow Rate FiO2 01/19/17 06:00 109 01/19/17 04:00 116 01/19/17 04:00 98.1 116 14 120/65 (83) 97 01/19/17 02:00 110 01/19/17 00:00 112 01/19/17 00:00 98.8 112 19 94/50 (65) 98 01/18/17 22:00 89 01/18/17 21:30 109 18 115/79 (91) 96 01/18/17 21:00 111 16 106/74 (85) 97 01/18/17 20:30 123 17 104/68 (80) 95 01/18/17 20:00 107 16 118/79 (92) 96 01/18/17 20:00 107 01/18/17 20:00 98.8 107 15 118/79 (92) 96 01/18/17 19:31 17 01/18/17 19:04 98 Nasal Cannula 1.00 01/18/17 19:00 118 17 98 01/18/17 18:02 109 15 98 01/18/17 18:00 108 01/18/17 18:00 108 18 98 01/18/17 17:02 124 21 99 01/18/17 17:00 120 17 98 01/18/17 16:02 115 16 105/72 (83) 99 01/18/17 16:00 98.5 108 14 105/72 (83) 98 01/18/17 16:00 108 01/18/17 16:00 108 14 105/72 (83) 98 01/18/17 15:32 126 16 103/64 (77) 97 01/18/17 15:30 111 14 111/69 (83) 97 01/18/17 15:00 121 10 103/64 (77) 98 01/18/17 15:00 121 10 103/64 (77) 98 01/18/17 15:00 121 01/18/17 14:32 83/61 (68) 01/18/17 14:02 83/61 (68) 01/18/17 14:00 123 01/18/17 14:00 98.4 123 12 83/61 (68) 99 01/18/17 13:47 119/76 (90) 01/18/17 13:32 111/70 (84) 01/18/17 13:17 119/76 (90) 01/18/17 12:00 98.3 102 10 111/70 (84) 100 01/18/17 12:00 105 01/18/17 10:00 107 I/O 01/18/17 01/18/17 01/18/17 01/19/17 01/19/17 01/19/17 07:00 15:00 23:00 07:00 15:00 23:00 Intake Total 731 ml 1994 ml 979 ml Output Total 750 ml 900 ml Balance -19 ml 1994 ml 79 ml Intake Oral 120 ml 750 ml 120 ml IV Total 611 ml 1244 ml 859 ml Output Urine Total 750 ml 900 ml # Voids 3 # Bowel Movements 1 Result Diagram: 01/19/1742001/19/17420 Objective Remarks GENERAL: NAD SKIN: Warm and dry. HEAD: Normocephalic. EYES: No scleral icterus. No injection or drainage. NECK: Supple, trachea midline. No JVD or lymphadenopathy. CARDIOVASCULAR: Irregular Regular rate and rhythm without murmurs, gallops, or rubs. RESPIRATORY: Breath sounds equal bilaterally. No accessory muscle use. GASTROINTESTINAL: Abdomen soft, non-tender, nondistended. MUSCULOSKELETAL: No cyanosis, or edema. BACK: Nontender without obvious deformity. No CVA tenderness. Procedures none A/P Problem List: (1) Non-ST elevation [place] (NSTEMI) ICD Code: I21.4 - Non-ST elevation (NSTEMI) myocardial infarction (2) Atrial fibrillation with RVR ICD Code: I48.91 - Unspecified atrial fibrillation Status: Acute (3) Hypertension, essential ICD Code: I10 - Essential (primary) hypertension (4) Chest pain ICD Code: R07.9 - Chest pain, unspecified Assessment and Plan 61 year-old man with Non-ST elevation [place] s/p left heart catheterization per cardiology 01/18/17 with finding of 90% proximal mid-LAD disease Continue with Pradaxa /Plavix /aspirin/beta madison/Lipitor 2-D echo pending Paroxysmal atrial fibrillation s/p left heart catheterization 01/18/17 Continue beta madison Resume Pradaxa twice a day today Hypertension Continue beta mad[place]/BLAKE inhibitor Hyperlipidemia On Statin LDL 85 DVT prophylaxis: Pradaxa Problem Qualifiers (1) Chest pain: Qualified Codes: R07.9 - Chest pain, unspecified Ariel Alvarez MD Jan 19, 2017 09:49
--- NOTE | 2017-01-19 10:00 | HHI.DS ---
Discharge Summary Admission Date Jan 16, 2017 at 23:20 Discharge Date: Jan 19, 2017 Admitting Diagnosis (1) Non-ST elevation [place] (NSTEMI) ICD Code: I21.4 - Non-ST elevation (NSTEMI) myocardial infarction (2) Atrial fibrillation with RVR ICD Code: I48.91 - Unspecified atrial fibrillation Status: Acute (3) Hypertension, essential ICD Code: I10 - Essential (primary) hypertension (4) Chest pain ICD Code: R07.9 - Chest pain, unspecified Procedures none Brief History - From Admission Mr. Navarro is 61 year old, with history of atrial fibrillation (first diagnosed first in 2004) and hypertension. Mr. Navarro reported having gone to visit his son earlier in the day (01/16/17) and began feeling tired which she said started between 11 AM to 12 noon. When he returned home since of fatigue was worsening and experienced palpitations which "happens when my A. fib gets worse." He also stated that he was experiencing a "cold sweat". Mr. Navarro said that he was resting for a little bit of time and took a nap and upon awakening he continued to feel tired and was experiencing chest pain. Shortly thereafter he he ate and his condition did not lianne. He then went to the emergency room at [facility] for evaluation and management of his condition. The ED team determined he was in atrial fibrillation with RVR and a troponin level of 0.06 resulted. He was subsequently sent to [facility] [place] of his condition. At time of interview , he reported that his chest pain was much improved yet he was still experiencing a sense of "pressure". He denied pain extending to his back neck or into his left arm, as well as nausea or vomiting, or shortness of breath. Per patient's , who was at the bedside during the interview, she reported that her has been having episodes of fatigue for approximately 2 weeks. She stated that today's episode was "the worst that he has had." Patient agreed with his 's observation, and stated that he would feel tired at the end of the day and need to rest. CBC/BMP: 01/19/17 0421 01/19/17 0421 Significant Findings Laboratory Tests Test 01/16/17 23:30 01/17/17 00:49 01/17/17 10:50 01/17/17 15:00 Troponin I 0.06 NG/ML (0.02-0.05) 0.06 NG/ML (0.02-0.05) 0.06 NG/ML (0.02-0.05) Random Glucose 118 MG/DL (74-106) Albumin 3.1 GM/DL (3.4-5.0) Calcium Level 8.3 MG/DL (8.5-10.1) Chloride Level 111 MEQ/L (98-107) Estimat Glomerular Filtration Rate 76 ML/MIN (>89) Test 01/17/17 20:32 01/18/17 04:14 01/18/17 14:17 01/18/17 16:50 Troponin I 0.06 NG/ML (0.02-0.05) 0.07 NG/ML (0.02-0.05) 0.06 NG/ML (0.02-0.05) Red Blood Count 4.22 MIL/MM3 (4.50-5.90) Hemoglobin 12.9 GM/DL (13.0-17.0) Hematocrit 38.3 % (39.0-51.0) Calcium Level 8.3 MG/DL (8.5-10.1) Chloride Level 109 MEQ/L (98-107) Estimat Glomerular Filtration Rate 77 ML/MIN (>89) Test 01/18/17 19:22 01/19/17 04:21 Troponin I 0.07 NG/ML (0.02-0.05) 0.15 NG/ML (0.02-0.05) Red Blood Count 4.29 MIL/MM3 (4.50-5.90) Hematocrit 38.9 % (39.0-51.0) Calcium Level 8.1 MG/DL (8.5-10.1) Chloride Level 110 MEQ/L (98-107) Estimat Glomerular Filtration Rate 69 ML/MIN (>89) HDL Cholesterol 26.1 MG/DL (40.0-60.0) PE at Discharge GENERAL: NAD SKIN: Warm and dry. HEAD: Normocephalic. EYES: No scleral icterus. No injection or drainage. NECK: Supple, trachea midline. No JVD or lymphadenopathy. CARDIOVASCULAR: Irregular Regular rate and rhythm without murmurs, gallops, or rubs. RESPIRATORY: Breath sounds equal bilaterally. No accessory muscle use. GASTROINTESTINAL: Abdomen soft, non-tender, nondistended. MUSCULOSKELETAL: No cyanosis, or edema. BACK: Nontender without obvious deformity. No CVA tenderness. Hospital Course He was admitted secondary to non-ST elevation [place] and atrial fibrillation with RVR for which cardiology was consulted. He underwent left heart catheterization with finding of 90% proximal mid LAD disease. Patient was started on Plavix 75 mg daily and advised to continue both Pradaxa and aspirin. Prior to discharge, patient's condition improved vitals remained stable. Pt Condition on Discharge: Stable Discharge Disposition: Discharge Home Discharge Time: <= 30 minutes Discharge Instructions DIET: Follow Instructions for: Heart Healthy Diet Activities you can perform: Regular-No Restrictions Follow up Referrals: Cardiology PCP Follow-up - 1 Week New Medications: Atorvastatin (Lipitor) 40 Mg Tab 40 MG PO HS for Cholesterol Management, #30 TAB 11 Refills Aspirin (Tgt Aspirin) 81 Mg Chw 81 MG PO DAILY for Prevent Blood Clot, #30 EA 11 Refills Clopidogrel (Plavix) 75 Mg Tab 75 MG PO DAILY for Prevent Blood Clot, #30 TAB 11 Refills Continued Medications: Dabigatran (Pradaxa) 150 Mg Cap 150 MG PO BID for Blood Clot Prevention, CAP 0 Refills Lisinopril (Lisinopril) 5 Mg Tab 5 MG PO DAILY for Blood Pressure Management, TAB 0 Refills Metoprolol Tartrate (Metoprolol Tartrate) 50 Mg Tab 50 MG PO BID, TAB 0 Refills Ariel Alvarez MD Jan 19, 2017 10:00
[2017-01-19] MEDS ORDERED: ASPI81 PO (10:04)
[2017-01-19] MEDS ORDERED: LIPI40TA PO (10:04)
[2017-01-19] MEDS ORDERED: PLAV75TA29 PO (10:04)
--- NOTE | 2017-01-19 14:16 | PD.CARD.PN ---
Subjective Subjective Remarks alert in nad, denies chest pain Objective Medications Current Medications Medications (Trade) Dose Ordered Sig/Katherine Route Start Time Stop Time Status Last Admin Sodium Chloride 1,000 ml @ 50 mls/hr Q20H IV 01/16/17 21:33 01/18/17 20:36 (Tylenol) 650 mg Q4H PRN PO 01/16/17 21:45 (Zofran Inj) 4 mg Q4H PRN IVP 01/16/17 21:45 (Claire-Colace) 1 tab BID PO 01/17/17 09:00 01/18/17 08:37 (Milk Of Magnesia Liq) 30 ml Q12H PRN PO 01/16/17 21:45 (Senokot) 17.2 mg Q12H PRN PO 01/16/17 21:45 (Dulcolax Supp) 10 mg DAILY PRN RECTAL 01/16/17 21:45 (Lactulose Liq) 30 ml DAILY PRN PO 01/16/17 21:45 (Prinivil) 5 mg DAILY PO 01/17/17 09:00 01/19/17 09:08 (Lopressor) 50 mg BID PO 01/17/17 09:00 01/19/17 09:08 Miscellaneous Information Patient in critical care unit? Ass... [id number] .XX 01/17/17 01:00 (Chlorhexidine 2% Cloth) 3 pack DAILY@04 TOPICAL 01/17/17 04:00 01/21/17 04:01 01/18/17 07:00 (Chlorhexidine 2% Cloth) 3 pack UNSCH PRN TOPICAL 01/17/17 00:45 01/22/17 00:32 Nitroglycerin/ Dextrose 250 ml @ 1.5 mls/hr TITRATE PRN IV 01/17/17 08:45 01/17/17 09:35 (NS Flush) 2 ml UNSCH PRN IV FLUSH 01/18/17 13:15 (NS Flush) 2 ml BID IV FLUSH 01/18/17 21:00 01/19/17 09:00 (Aspirin Chew) 81 mg DAILY PO 01/19/17 09:00 01/19/17 09:08 (Plavix) 75 mg DAILY PO 01/19/17 09:00 01/19/17 09:08 (Lipitor) 10 mg HS PO 01/18/17 21:00 01/18/17 20:28 ([place] 5-325 Mg) 1 tab Q4H PRN PO 01/18/17 17:00 ([place] 7.5-325 Mg) 1 tab Q4H PRN PO 01/18/17 17:00 01/18/17 18:31 (Narcan Inj) 0.4 mg UNSCH PRN IV PUSH 01/18/17 17:00 Vital Signs / I&O Vital Signs Date Time Temp Pulse Resp B/P (MAP) Pulse Ox O2 Delivery O2 Flow Rate FiO2 01/19/17 10:00 134 01/19/17 09:54 96 01/19/17 08:00 158 01/19/17 08:00 98.3 158 35 101/74 (83) 95 01/19/17 06:00 109 01/19/17 04:00 116 01/19/17 04:00 98.1 116 14 120/65 (83) 97 01/19/17 02:00 110 01/19/17 00:00 112 01/19/17 00:00 98.8 112 19 94/50 (65) 98 01/18/17 22:00 89 01/18/17 21:30 109 18 115/79 (91) 96 01/18/17 21:00 111 16 106/74 (85) 97 01/18/17 20:30 123 17 104/68 (80) 95 01/18/17 20:00 107 16 118/79 (92) 96 01/18/17 20:00 107 01/18/17 20:00 98.8 107 15 118/79 (92) 96 01/18/17 19:31 17 01/18/17 19:04 98 Nasal Cannula 1.00 01/18/17 19:00 118 17 98 01/18/17 18:02 109 15 98 01/18/17 18:00 108 01/18/17 18:00 108 18 98 01/18/17 17:02 124 21 99 01/18/17 17:00 120 17 98 01/18/17 16:02 115 16 105/72 (83) 99 01/18/17 16:00 98.5 108 14 105/72 (83) 98 01/18/17 16:00 108 01/18/17 16:00 108 14 105/72 (83) 98 01/18/17 15:32 126 16 103/64 (77) 97 01/18/17 15:30 111 14 111/69 (83) 97 01/18/17 15:00 121 10 103/64 (77) 98 01/18/17 15:00 121 10 103/64 (77) 98 01/18/17 15:00 121 01/18/17 14:32 83/61 (68) I/O 01/18/17 01/18/17 01/18/17 01/19/17 01/19/17 01/19/17 07:00 15:00 23:00 07:00 15:00 23:00 Intake Total 731 ml 1994 ml 979 ml Output Total 750 ml 900 ml Balance -19 ml 1994 ml 79 ml Intake Oral 120 ml 750 ml 120 ml IV Total 611 ml 1244 ml 859 ml Output Urine Total 750 ml 900 ml # Voids 3 # Bowel Movements 1 Physical Exam GENERAL: SKIN: Warm and dry. HEAD: Normocephalic. EYES: No scleral icterus. No injection or drainage. NECK: Supple, trachea midline. No JVD or lymphadenopathy. CARDIOVASCULAR: Regular rate and rhythm without murmurs, gallops, or rubs. RESPIRATORY: Breath sounds equal bilaterally. No accessory muscle use. GASTROINTESTINAL: Abdomen soft, non-tender, nondistended. MUSCULOSKELETAL: No cyanosis, or edema. BACK: Nontender without obvious deformity. No CVA tenderness. Laboratory Laboratory Tests Test 01/18/17 14:17 01/18/17 16:50 01/18/17 19:22 01/19/17 04:21 Total Creatine Kinase 105 U/L 104 U/L 99 U/L 99 U/L Troponin I 0.05 NG/ML 0.06 NG/ML 0.07 NG/ML 0.15 NG/ML White Blood Count 7.0 TH/MM3 Red Blood Count 4.29 MIL/MM3 Hemoglobin 13.4 GM/DL Hematocrit 38.9 % Mean Corpuscular Volume 90.7 FL Mean Corpuscular Hemoglobin 31.4 PG Mean Corpuscular Hemoglobin Concent 34.6 % Red Cell Distribution Width 13.0 % Platelet Count 214 TH/MM3 Mean Platelet Volume 8.9 FL Neutrophils (%) (Auto) 55.7 % Lymphocytes (%) (Auto) 35.1 % Monocytes (%) (Auto) 7.8 % Eosinophils (%) (Auto) 1.1 % Basophils (%) (Auto) 0.3 % Neutrophils # (Auto) 3.9 TH/MM3 Lymphocytes # (Auto) 2.5 TH/MM3 Monocytes # (Auto) 0.6 TH/MM3 Eosinophils # (Auto) 0.1 TH/MM3 Basophils # (Auto) 0.0 TH/MM3 CBC Comment DIFF FINAL Differential Comment Blood Urea Nitrogen 14 MG/DL Creatinine 1.09 MG/DL Random Glucose 93 MG/DL Calcium Level 8.1 MG/DL Sodium Level 142 MEQ/L Potassium Level 3.8 MEQ/L Chloride Level 110 MEQ/L Carbon Dioxide Level 25.3 MEQ/L Anion Gap 7 MEQ/L Estimat Glomerular Filtration Rate 69 ML/MIN Triglycerides Level 116 MG/DL Cholesterol Level 134 MG/DL LDL Cholesterol 85 MG/DL HDL Cholesterol 26.1 MG/DL Cholesterol/HDL Ratio 5.13 RATIO Assessment and Plan Problem List: (1) CAD (coronary artery disease) ICD Codes: I25.10 - Atherosclerotic heart disease of [place] coronary artery without angina pectoris (2) Hypertension, essential ICD Codes: I10 - Essential (primary) hypertension (3) Non-ST elevation [place] (NSTEMI) ICD Codes: I21.4 - Non-ST elevation (NSTEMI) myocardial infarction (4) Atrial fibrillation with RVR ICD Codes: I48.91 - Unspecified atrial fibrillation Status: Acute Assessment and Plan 1.) CAD - assymptomatic pod #1 bms lad - ok to dc on aspirin, plavix, metoprolol , lipitor, lisinopril, i advised him to f/u Dr Avila, 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
== END 2017-01-19 14:42 | disposition home or self-care (01) | DRG 249 ==
LOC: NEDDLT 23:19 → HIMN 23:20
PROVIDERS: ADMIT Hospitalist; ATTEND Hospitalist
PROC: 4A023N7 Measurement of Cardiac Sampling and Pressure, Left Heart, Percutaneous Approach (ICD-10-PCS; 2017-01-18)
PROC: B2111ZZ Fluoroscopy of Multiple Coronary Arteries using Low Osmolar Contrast (ICD-10-PCS; 2017-01-18)
PROC: B2151ZZ Fluoroscopy of Left Heart using Low Osmolar Contrast (ICD-10-PCS; 2017-01-18)
PROC: 02703DZ Dilation of Coronary Artery, One Artery with Intraluminal Device, Percutaneous Approach (ICD-10-PCS; principal; 2017-01-18 12:30)
DX: I21.4 Non-ST elevation (NSTEMI) myocardial infarction (principal); I10 Essential (primary) hypertension; I25.10 Atherosclerotic heart disease of native coronary artery without angina pectoris; I48.0 Paroxysmal atrial fibrillation; E78.5 Hyperlipidemia, unspecified; Z79.899 Other long term (current) drug therapy; Z79.01 Long term (current) use of anticoagulants; Z96.652 Presence of left artificial knee joint
CPT/HCPCS: 71010; 80048; 80053; 80061; 82550; 82552; 83735; 84484; 85002; 85025; 85027; 85610; 85730; 87641; 92928; 93005; 93458; 99152; 99153; C1769; C1876; C1887; C1893; J1644; J3010; J3246; J7030; Q9967